=== PATIENT | female | born 1950 | race Caucasian/White ===

== ENCOUNTER 2016-07-14 13:46 | Emergency (ER) | payer MEDICARE, OTHER ==
[~2016-07-14] VITALS: Ht 160 cm; Wt 80.0 kg
[~2016-07-14 13:46] MED LIST: ALBU8.5H3 INH; AZIT250T94 PO; BENA20TA48 PO; BENA20TA65 PO; CETI10CA PO; FLUT9.9S NASAL; GUAI473L22 PO; IBUP400T22 PO; LEVO750T25 PO; LEVO75CA PO; LEVO75TA59 PO; PRED20TA PO; PROM6.25 PO; SAME MEDS; SERT25TA83 PO; TYL500 PO; ZOC10 PO; [UNRECOGNIZED DRUG - REMARK]
[2016-07-14 13:49] VITALS: Ht 160 cm; Wt 80.0 kg
[2016-07-14] MEDS ORDERED: AZIT250T94 PO (14:36)
[2016-07-14] MEDS ORDERED: BENZ200C43 PO (14:37)
[2016-07-14] MEDS ORDERED: IBUP-1542 PO (14:37)
--- NOTE | 2016-07-14 20:34 | ERD ---
ER Documentation Chief Complaint Date/Time DATE: 07/14/16 TIME: 20:32 Chief Complaint FEVER , SORE THRAOT , EAR PAIN HPI This patient is a 66-year-old female with no significant medical history presenting to the emergency department with left ear pain, tactile fevers, and sore throat ongoing for the past 3 days. Symptoms are worsening. The patient is also reported body aches. She additionally reports cough which is productive and worsening. She denies alleviating factors. The patient is taken no medication for relief of symptoms. No urinary symptoms, nausea, vomiting, diarrhea, or other symptoms currently. ROS All systems reviewed and are negative except as per history of present illness. Medications Home Meds Active Scripts Ibuprofen* (Motrin*) 600 Mg Tab, 600 MG PO Q6, #30 TAB Prov:MILI VILLELA PA-C 07/14/16 Benzonatate* (Benzonatate*) 200 Mg Capsule, 200 MG PO TID Y for COUGH, #15 CAP Prov:MILI VILLELA PA-C 07/14/16 Azithromycin* (Zithromax*) 250 Mg Tablet, 250 MG PO .ZPACK DIRECTED, #6 TAB TAKE 500 MG (2 TABS) THE FIRST DAY THEN 250 MG (1 TAB) DAYS 2-5 Prov:MILI VILLELA PA-C 07/14/16 Ibuprofen* (Motrin*) 400 Mg Tab, 400 MG PO Q6H Y for PAIN AND OR ELEVATED TEMP, #30 TAB Prov:ARETHA HULL NP 01/08/16 Cetirizine Hcl* (Zyrtec*) 10 Mg Capsule, 10 MG PO DAILY, #30 TAB.CHEW Prov:ARETHA HULL NP 01/08/16 Fluticasone Propionate (Flonase Allergy Relief) 9.9 Ml [place].susp, 1 SPRAY NASAL BID, #1 BOTTLE TO EACH NOSTRIL Prov:ARETHA HULL NP 01/08/16 Guaifenesin-Codeine Phosphate* (Guaifenesin* AC Cough Syrup) 473 Ml Liquid, 10 ML PO Q4H Y for COUGH, #120 ML Prov:ARETHA HULL NP 01/08/16 Albuterol Sulfate* (Proair HFA*) 8.5 Gm Hfa.aer.ad, 2 PUFF INH Q4H Y for WHEEZING AND SOB, #1 INHALER Prov:ARETHA HULL NP 01/08/16 Prednisone* (Prednisone*) 20 Mg Tab, 20 MG PO BID for 5 Days, TAB Prov:BELLA MOY DO 02/17/15 Albuterol Sulfate* (Proair HFA*) 8.5 Gm Hfa.aer.ad, 2 PUFF INH Q4H Y for WHEEZING AND SOB, #1 INHALER Prov:BELLA MOY DO 02/17/15 Acetaminophen* (Tylenol*) 500 Mg Tab, 500 MG PO Q4H Y for MILD PAIN LEVEL 1-3, # 16 TAB Prov:PARAG RASHID MD 02/14/15 Promethazine w/Codeine* (Phenergan w/Codeine* Syrup) 5 Ml Syrup, 5 ML PO Q4H Y for COUGH for 5 Days, ML 6 oz Prov:PARAG RASHID MD 02/14/15 Levofloxacin* (Levaquin*) 750 Mg Tablet, 750 MG PO DAILY for 5 Days, TAB Prov:KIRSTY MTZ PA-C 02/13/15 Azithromycin* (Zithromax*) 250 Mg Tablet, 250 MG PO .SANA DIRECTED, #6 TAB TAKE 500 MG (2 TABS) THE FIRST DAY THEN 250 MG (1 TAB) DAYS 2-5 Prov:KIRSTY MTZ PA-C 02/13/15 Reported Medications Simvastatin (Simvastatin) 10 Mg Tablet, 10 MG PO DAILY 01/12/12 Sertraline Hcl* (Sertraline Hcl*) 25 Mg Tablet, 25 MG PO DAILY 01/12/12 [Same Meds] No Conflict Check 12/27/11 Levothyroxine Sodium (Tirosint) 75 Mcg Capsule, 75 MCG PO DAILY 05/09/11 Benazepril Hcl* (Lotensin*) 20 Mg Tablet, 20 MG PO DAILY 05/09/11 Benazepril Hcl* (Benazepril Hcl*) 20 Mg Tablet, PO DAILY 03/28/11 Levothyroxine Sodium (Levothroid) 75 Mcg Tablet, PO DAILY 03/28/11 [Unknown Names] No Conflict Check 07/23/10 Allergies Allergies: Coded Allergies: No Known Allergies (Verified Allergy, Mild, 02/13/15) PMhx/Soc History of Surgery: Yes (HEAD SHUNT X 5 YRS AGO,ABDOMEN) Anesthesia Reaction: No Hx Neurological Disorder: Yes (BRAIN) Hx Respiratory Disorders: No Hx Cardiac Disorders: Yes (HTN, hypothyroidism) Hx Psychiatric Problems: No Hx Miscellaneous Medical Probl: No (hypothyroid) Hx Alcohol Use: No Hx Substance Use: No Hx Tobacco Use: No Physical Exam Vitals Vital Signs Date Time Temp Pulse Resp B/P Pulse Ox O2 Delivery O2 Flow Rate FiO2 07/14/16 13:49 98.1 70 18 157/74 96 Physical Exam Const: Well-appearing, nontoxic female resting comfortably in no acute distress. Head: Atraumatic Eyes: Normal Conjunctiva ENT: Normal External Ears, Nose and Mouth. The left tympanic membrane is erythematous but no bulging. The right tympanic membrane is normal in appearance. Neck: Full range of motion..~ No meningismus. Resp: Clear to auscultation bilaterally Cardio: Regular rate and rhythm, no murmurs Abd: Soft, non tender, non distended. Normal bowel sounds Skin: No petechiae or rashes Back: No midline or flank tenderness Ext: No cyanosis, or edema Neur: Awake and alert Psych: Normal Mood and Affect Procedures/MDM 66-year-old female presents to the emergency department complaining of left ear pain, cough, and fevers. On physical examination the patient's blood pressure was slightly elevated above normal at 157/74. Patient's blood pressure was elevated (>120/80) but appears stable without evidence of hypertension emergency or urgency. The patient was counseled about the risks of hypertension and urged to pursue outpatient monitoring and therapy within a week with their primary care physician. History and clinical examination is concerning for otitis media and upper respiratory infection with possible bacterial etiology and so the patient will be treated as an outpatient with a prescription for azithromycin, benzonatate, and ibuprofen. Strict ER return precautions were discussed. The patient understands and agrees with the discharge plan and diagnosis. The patient is to have close follow-up with primary care physician. Departure Diagnosis: Primary Impression: Cough Additional Impressions: Upper respiratory infection Otitis media Condition: Fair Patient Instructions: Preventing Common Respiratory Infections, Otitis Media, Abx Tx (Adult) [facility] Usted se pruitt hecho un examen mdico de control que le indica que no est en petra condicin que requiera tratamiento urgente en el Departamento de Emergencia. Un estudio ms profundo y el tratamiento de power condicin pueden esperar sin ningn riesgo hasta que usted sea atendida/o en el consultorio de power mdico o petra cl elizabet. Es responsabilidad suya arreglar petra eliana para el seguimiento del juve. MANEJO DE CONDICIONES NO URGENTES EN EL FUTURO 1) Si usted tiene un mdico de atencin primaria: Usted debera llamar a power mdico de atencin primaria antes de venir al departamento de emergencia. Despus de las horas de consultorio, power doctor o power asociado/a est disponible por telfono. El mdico o enfermero de doug en el servicio telefnico puede asesorarle por shyann medio para atender el problema, o juve contrario se puede programar petra eliana. 2) Si usted no tiene un mdico de atencin primaria: Llame al mdico o clnica de referencia que aparece abajo bashir las horas de consultorio para hacer petra eliana para que le vean. CLINICAS: [facility] [phone] [facility] [phone] [facility] [phone] [facility]. [facility] [phone] [address] [facility]. [place] [phone] [facility] [phone] [address] Additional Instructions: No mas mejor en 2-3 moody, regresar. Mas peor en 24 horas, regresear rapidamente. Ir a doctor primario in 5-7 moody. Usar instrucciones cuando shira medicamento. MILI VILLELA PA-C July 14, 2016 20:34
== END 2016-07-14 16:12 | disposition home or self-care (01) ==
LOC: FTE 13:46 → E/R 16:12
DX: R05 Cough (principal); J06.9 Acute upper respiratory infection, unspecified; H66.92 Otitis media, unspecified, left ear; I10 Essential (primary) hypertension; E03.9 Hypothyroidism, unspecified
CPT/HCPCS: 99284

== ENCOUNTER 2018-07-09 13:27 | Emergency (ER) | payer MEDICARE, OTHER ==
[~2018-07-09] VITALS: Ht 157.5 cm; Wt 82.5 kg
[~2018-07-09 13:27] MED LIST changes: -ALBU8.5H3 INH; +ALBU8.5H8 INH; +AZIT250T PO; -AZIT250T94 PO; +BENA20TA4 PO; -BENA20TA48 PO; +BENZ200C68 PO; +IBUP-1542 PO; +IBUP-1561 PO; -IBUP400T22 PO
[2018-07-09 13:30] VITALS: RESP 18; Ht 157.5 cm; Wt 82.5 kg
--- NOTE | 2018-07-09 14:55 | ERD ---
ER Documentation Chief Complaint Chief Complaint cough , sore throat x 4 days HPI Patient is a 68 years old female with past medical history of hypertension and hypothyroidism presenting to the clinic with severe cough, chest congestion, brown sputum production, throat pain, difficulty swallowing, shortness of breat h, nasal congestion, coryza, headache, bilateral ear pain, sinus pressure X 4 days. Patient reports taking [id number]-[id number] cervical, Sudafed, Claritin, Flonase without any resolution. Patient rates her headache a 7 out of 10 and is taking any NSAIDs or Tylenol. Patient admits to history of stroke 14 years ago. ROS All systems reviewed and are negative except as per history of present illness. Medications Home Meds Active Scripts Dextromethorphan Hb-Promethazine Hcl* (Promethazine DM* Syrup) 473 Ml Syrup, 5 ML PO Q6 PRN for COUGH for 7 Days, ML Prov:OZZY JUAREZ PA-C 07/09/18 Methylprednisolone* (Medrol* DOSE PACK) 4 Mg/Dose-Pack Tab.ds.pk, 4 MG PO . DIRECTED for 5 Days, PACKET Prov:OZZY JUAREZ PA-C 07/09/18 Amoxicillin/Potassium Clav (Amox-Clav 875-125 mg Tablet) 875-125 mg Tab, 1 TAB PO BID for 7 Days, #14 TAB Prov:OZZY JUAREZ PA-C 07/09/18 Ibuprofen* (Motrin*) 600 Mg Tab, 600 MG PO Q6, #30 TAB Prov:MILI VILLELA PA-C 07/14/16 Benzonatate* (Benzonatate*) 200 Mg Capsule, 200 MG PO TID PRN for COUGH, #15 CAP Prov:MILI VILLELA PA-C 07/14/16 Azithromycin* (Zithromax*) 250 Mg Tablet, 250 MG PO .ZPACK DIRECTED, #6 TAB TAKE 500 MG (2 TABS) THE FIRST DAY THEN 250 MG (1 TAB) DAYS 2-5 Prov:MILI VILLELA PA-C 07/14/16 Ibuprofen* (Motrin*) 400 Mg Tab, 400 MG PO Q6H PRN for PAIN AND OR ELEVATED TEMP, #30 TAB Prov:ARETHA HULL NP 01/08/16 Cetirizine Hcl* (Zyrtec*) 10 Mg Capsule, 10 MG PO DAILY, #30 TAB.CHEW Prov:ARETHA HULL NP 01/08/16 Fluticasone Propionate (Flonase Allergy Relief) 9.9 Ml [place].susp, 1 SPRAY NASAL BID, #1 BOTTLE TO EACH NOSTRIL Prov:ARETHA HULL NP 01/08/16 Guaifenesin-Codeine Phosphate* (Guaifenesin* AC Cough Syrup) 473 Ml Liquid, 10 ML PO Q4H PRN for COUGH, #120 ML Prov:ARETHA HULL NP 01/08/16 Albuterol Sulfate* (Proair HFA*) 8.5 Gm Hfa.aer.ad, 2 PUFF INH Q4H PRN for WHEEZING AND SOB, #1 INHALER Prov:ARETHA HULL NP 01/08/16 Prednisone* (Prednisone*) 20 Mg Tab, 20 MG PO BID for 5 Days, TAB Prov:BELLA MOY DO 02/17/15 Albuterol Sulfate* (Proair HFA*) 8.5 Gm Hfa.aer.ad, 2 PUFF INH Q4H PRN for WHEEZING AND SOB, #1 INHALER Prov:BELLA MOY DO 02/17/15 Acetaminophen* (Tylenol*) 500 Mg Tab, 500 MG PO Q4H PRN for MILD PAIN LEVEL 1-3, #16 TAB Prov:PARAG RASHID MD 02/14/15 Promethazine w/Codeine* (Phenergan w/Codeine* Syrup) 5 Ml Syrup, 5 ML PO Q4H PRN for COUGH for 5 Days, ML 6 oz Prov:PARAG RASHID MD 02/14/15 Levofloxacin* (Levaquin*) 750 Mg Tablet, 750 MG PO DAILY for 5 Days, TAB Prov:KIRSTY MTZ PA-C 02/13/15 Azithromycin* (Zithromax*) 250 Mg Tablet, 250 MG PO .SANA DIRECTED, #6 TAB TAKE 500 MG (2 TABS) THE FIRST DAY THEN 250 MG (1 TAB) DAYS 2-5 Prov:KIRSTY MTZ PA-C 02/13/15 Reported Medications Simvastatin (Simvastatin) 10 Mg Tablet, 10 MG PO DAILY 01/12/12 Sertraline Hcl* (Sertraline Hcl*) 25 Mg Tablet, 25 MG PO DAILY 01/12/12 [Same Meds] No Conflict Check 12/27/11 Levothyroxine Sodium (Tirosint) 75 Mcg Capsule, 75 MCG PO DAILY 05/09/11 Benazepril Hcl* (Lotensin*) 20 Mg Tablet, 20 MG PO DAILY 05/09/11 Benazepril Hcl* (Benazepril Hcl*) 20 Mg Tablet, PO DAILY 03/28/11 Levothyroxine Sodium (Levothroid) 75 Mcg Tablet, PO DAILY 03/28/11 [Unknown Names] No Conflict Check 07/23/10 Allergies Allergies: Coded Allergies: No Known Allergies (Verified Allergy, Mild, 07/09/18) PMhx/Soc Hypertension, hypothyroidism. History of stroke 14 years ago. History of Surgery: Yes (HEAD SHUNT X 5 YRS AGO,ABDOMEN) Anesthesia Reaction: No Hx Neurological Disorder: Yes (BRAIN) Hx Respiratory Disorders: No Hx Cardiac Disorders: Yes (HTN, hypothyroidism) Hx Psychiatric Problems: No Hx Miscellaneous Medical Probl: No (hypothyroid) Hx Alcohol Use: No Hx Substance Use: No Hx Tobacco Use: No FmHx Family History: No diabetes, No coronary disease, No other Physical Exam Vitals Vital Signs Date Temp Pulse Resp B/P (MAP) Pulse Ox O2 O2 Flow FiO2 Time Delivery Rate 07/09/18 69 158/68 16:52 (98) 07/09/18 99.1 70 18 137/73 96 13:30 (94) Physical Exam Const: No acute distress Head: Atraumatic. +Frontal, ethmoidal, maxillary sinus tenderness. Eyes: Normal Conjunctiva ENT: Left TM erythematous watery discharge. Nasal mucosa edematous out any septal deviation. Mild oropharyngeal erythema. Neck: Full range of motion. No meningismus. Resp: Jeanine breath sounds bilaterally as patient was unable to adequately inhale and exhale due to nasal congestion. Cardio: Regular rate and rhythm, no murmurs Neur: Awake and alert Psych: Normal Mood and Affect Results 24 hrs Current Medications Medications Dose Sig/Reagan Start Time Status Last (Trade) Ordered Route PRN Stop Time Admin Dose Reason Admin 20 mg ONCE ONCE 07/09/18 DC 07/09/18 Methylprednis IM 15:00 14:53 olone Sodium 07/09/18 15:01 Succinate (Solu-Medrol) Ibuprofen 800 mg ONCE ONCE 07/09/18 DC 07/09/18 (Motrin) PO 15:00 14:53 07/09/18 15:01 Procedures/MDM Patient was evaluated for upper respiratory tract infection. Patient's physical exam is consistent with sinus infection, left otitis media. Patient's chest x-ray is unremarkable, rapid strep test negative, and influenza negative. Patient was advised she has an upper respiratory tract infection cold sinus infection and left otitis media infection. Patient reports significant improvement with Solu-Medrol administered in clinic. Patient and will be discharged with Augmentin for 7 days, Medrol Dosepak, Promethazine DM. Departure Diagnosis: Primary Impression: Cough Additional Impressions: Bronchitis Sinusitis Sinusitis location: unspecified location Chronicity: acute Recurrence: not specified as recurrent Qualified Codes: J01.90 - Acute sinusitis, unspecified Left otitis media Otitis media type: suppurative Chronicity: acute Recurrence: non- recurrent Spontaneous tympanic membrane rupture: without spontaneous rupture Qualified Codes: H66.002 - Acute suppurative otitis media without spontaneous rupture of ear drum, left ear Condition: Stable Referrals: [facility] Additional Instructions: Paciente aconseja volver a Departamento de urgencias inmediatamente para sntomas nuevos o que empeoran . Paciente aconseja posteriores con el PCP en 2-3 hart . Paciente verbaliza la comprehensin y est de acuerdo con el tratamiento y el curso de accin. Si el paciente no tiene ninguna de atencin primaria pueden seguir con [facility] [id number] [place] [id number] [facility] + [address] [phone] Comments Patient evaluated with JOSÉ, agree with assessment and plan OZZY Meek PA-C July 09, 2018 14:54 JESSICA WILLAMS DO July 10, 2018 12:02
[2018-07-09] MEDS ORDERED: IBUPROFEN 800 MG TAB PO ONE (15:00)
[2018-07-09] MEDS ORDERED: METHYLPREDNISOLONE 40 MG INJ IM ONE (15:00)
[2018-07-09] MEDS ORDERED: D-ME473S2 PO (16:44)
[2018-07-09] MEDS ORDERED: AMOX1TAB10 PO (16:44)
[2018-07-09] MEDS ORDERED: MED4DP PO (16:44)
[2018-07-09 16:52] VITALS: BP 158/68; PULSE 69
== END 2018-07-09 16:53 | disposition home or self-care (01) ==
LOC: FTE 13:27
DX: J40 Bronchitis, not specified as acute or chronic (principal); I10 Essential (primary) hypertension; E03.9 Hypothyroidism, unspecified; J01.90 Acute sinusitis, unspecified; H66.002 Acute suppurative otitis media without spontaneous rupture of ear drum, left ear
CPT/HCPCS: 71046; 87400; 87880; 96372; 99284; J2920

== ENCOUNTER 2018-10-15 17:07 | Emergency (ER) | payer MEDICARE, OTHER ==
[~2018-10-15] VITALS: Ht 157.5 cm; Wt 79.0 kg
[~2018-10-15 17:07] MED LIST changes: +AMOX1TAB10 PO; +D-ME473S2 PO; +HYDR-4011 PO; +MED4DP PO; +POLY10DR19 LEFT EYE
[2018-10-15 17:10] VITALS: Ht 157.5 cm; Wt 79.0 kg
[2018-10-15 19:26] VITALS: BP 145/75; PULSE 62; RESP 18
== END 2018-10-15 19:26 | disposition home or self-care (01) ==
LOC: FTE 17:07
DX: S05.02XA Injury of conjunctiva and corneal abrasion without foreign body, left eye, initial encounter (principal); I10 Essential (primary) hypertension; E03.9 Hypothyroidism, unspecified; X58.XXXA Exposure to other specified factors, initial encounter; Y92.9 Unspecified place or not applicable
CPT/HCPCS: 99283